=== PATIENT | male | born 1945 | race Two or more races ===

== ENCOUNTER 2024-11-02 09:47 | Outpatient (OUT) | payer MEDICARE, SELFPAY ==
--- NOTE | 2024-11-02 09:57 | ECG_ITS ---
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 Measurements Intervals [place] Rate: 82 P: 68 RI: 169 QRS: 37 QRSD: 109 T: 60 QT: 373 QTc: 438 Interpretive Statements SINUS RHYTHM Normal ECG No previous ECG available for comparison Electronically Signed On 11-03-2024 6:43:48 EDT by GEORGE ROSA M.D.
[2024-11-02 10:35] LABS: INR 1.12; Partial Thromboplastin Time 26.0 sec (22.3-36.2); Prothrombin Time 11.7 sec (9.0-11.6)
[2024-11-02 10:36] LABS: Hematocrit 41.0 % (42.0-54.0); Hemoglobin 13.8 g/dL (14.0-18.0); Immature Granulocytes Abs Auto 0.01 10^3/uL (0.00-0.03); Immature Granulocytes Pct Auto 0.1 % (0.0-0.5); Lymphocytes Absolute Auto 2.2 10^3/uL (1.2-3.8); Mean Corpuscular HGB Conc 33.7 g/dL (29.9-35.2); Mean Corpuscular Hemoglobin 30.5 pg (25.9-34.0); Mean Corpuscular Volume 90.7 fL (80.0-94.0); Platelet Count 213 10^3/uL (150-450); Red Blood Count 4.52 10^6/uL (4.70-6.10); White Blood Count 7.0 10^3/uL (4.0-11.0)
[2024-11-02 10:48] LABS: Anion Gap 11.3; Blood Urea Nitrogen 23.0 mg/dL (7.0-18.0); Calcium 9.1 mg/dL (8.5-10.1); Carbon Dioxide 28.1 mmol/L (21.0-32.0); Chloride 104 mmol/L (98-107); Estimated GFR (African America 57 (>=60 mL/min/1.73m^2); Estimated GFR (Non-African Ame 47 (>=60 mL/min/1.73m^2); Glucose 161 mg/dL (74-106); Potassium 4.4 mmol/L (3.5-5.1); Sodium 139 mmol/L (136-145)
--- NOTE | 2024-11-02 11:31 | PM.PRESUREVA ---
History of Present Illness History of Present Illness Chief complaint: Bladder Tumor Lesion Narrative: Patient presents for presurgical testing. The patient reports a year-long history of bladder cancer with multiple resections. He states he recently had a cystoscopy and is now scheduled for an additional TURBT. He denies any urological complaints today. Review of Systems ROS Narrative REVIEW OF SYSTEMS: Negative except as stated in HPI, ten or more systems reviewed. Constitutional: No fever, chills, weakness ENT: No sore throat or epistaxis Cardiovascular: Chronic lower extremity edema and dyspnea on exertion; No chest pain Respiratory: No cough or wheezing Musculoskeletal: No joint pain or swelling Gastrointestinal: No abdominal pain, constipation, diarrhea, or vomiting Genitourinary: No dysuria Neurological: No numbness, tingling, weakness, or headache Psychiatric: No mood changes PFSH PFS Medical History (Updated 11/02/24 @ 11:30 by Chayo Knight NP) Hematuria ?R31.9 - Hematuria, unspecified (ICD-10) Renal cyst ?N28.1 - Cyst of kidney, acquired (ICD-10) Bladder tumor ?D49.4 - Neoplasm of unspecified behavior of bladder (ICD-10) Back pain ?M54.9 - Dorsalgia, unspecified (ICD-10) Arthritis ?M19.90 - Unspecified osteoarthritis, unspecified site (ICD-10) MARIANNA on CPAP ?G47.33 - Obstructive sleep apnea (adult) (pediatric) (ICD-10) Sleep apnea ?G47.30 - Sleep apnea, unspecified (ICD-10) GERD (gastroesophageal reflux disease) ?K21.9 - Gastro-esophageal reflux disease without esophagitis (ICD-10) Extremity edema ?R60.0 - Localized edema (ICD-10) Dyspnea on exertion ?R06.09 - Other forms of dyspnea (ICD-10) Hypertension ?I10 - Essential (primary) hypertension (ICD-10) High cholesterol ?E78.00 - Pure hypercholesterolemia, unspecified (ICD-10) Prediabetes ?R73.03 - Prediabetes (ICD-10) Surgical History (Updated 11/02/24 @ 10:20 by Chayo Knight NP) History of arthroplasty of knee ?Z96.659 - Presence of unspecified artificial knee joint (ICD-10) History of tonsillectomy ?Z90.89 - Acquired absence of other organs (ICD-10) History of colonoscopy ?Z98.890 - Other specified postprocedural states (ICD-10) History of appendectomy ?Z90.49 - Acquired absence of other specified parts of digestive tract (ICD-10) S/P cystoscopy ?Z98.890 - Other specified postprocedural states (ICD-10) History of bladder surgery ?Z98.890 - Other specified postprocedural states (ICD-10) Family History (Updated 11/02/24 @ 10:19 by Chayo Knight NP) Other Family history of cancer Family history of diabetes mellitus Family history of myocardial infarction Social History (Updated 11/02/24 @ 10:17 by Chayo Knight NP) Within the past year, how often did you have a drink containing alcohol: monthly or less Smoking status: Former smoker Non-prescribed substance use: denies use Highest level of school completed/degree received: high school graduate Meds Home Medications and Allergies Home Medications ?Medication ?Instructions ?Recorded ?Confirmed ?Type atorvastatin 10 mg tablet 10 mg PO DAILY 11/02/24 11/02/24 History cholecalciferol (vitamin D3) 250 250 mcg PO DAILY 11/02/24 11/02/24 History mcg (10,000 unit) capsule diclofenac sodium 75 mg 75 mg PO Q12H 11/02/24 11/02/24 History tablet,delayed release fiber 1 cap PO DAILY 11/02/24 11/02/24 History fosinopril 20 mg tablet 20 mg PO DAILY 11/02/24 11/02/24 History mecobalamin (vitamin B12) 1,000 1,000 mcg PO DAILY 11/02/24 11/02/24 History mcg chewable tablet multivitamin (Daily Multi-Vitamin 1 tab PO DAILY 11/02/24 11/02/24 History tablet) omeprazole 20 mg capsule,delayed 20 mg PO DAILY 11/02/24 11/02/24 History release phentermine 37.5 mg capsule 37.5 mg PO DAILY 11/02/24 11/02/24 History tamsulosin 0.4 mg capsule (Flomax) 0.4 mg PO DAILY 11/02/24 11/02/24 History Allergies Allergy/AdvReac Type Severity Reaction Status Date / Time Penicillins Allergy Unknown Verified 11/02/24 10:15 Exam Narrative Exam Narrative: Constitutional: Awake, alert, comfortable, well-appearing, nontoxic, interactive, vital signs as charted Head: Normocephalic, atraumatic Neck: Supple, normal appearance, normal range of motion, no meningeal signs, no lymphadenopathy Respiratory: No respiratory distress, breath sounds clear Cardiovascular: Regular rate and rhythm, strong and regular heart tones Abdomen: Nontender, normal bowel sounds, soft, no CVA tenderness Musculoskeletal: Ambulates with a slow steady gait, 2+ pitting edema bilateral lower extremities Skin: No rashes or induration, no lesions, only visible skin inspected Neuro: No neurological deficits, normal sensation Psychiatric: Oriented ?3, normal affect Assessment and Plan Assessment and Plan (1) Bladder tumor: Plan Cystoscopy, TURBT scheduled with Dr. Ritchie November 09 2024.
== END 2024-11-02 09:48 | disposition home or self-care (01) ==
LOC: PST 09:52
PROVIDERS: Visit Provider Urology
DX: Z01.810 Encounter for preprocedural cardiovascular examination (principal); Z01.812 Encounter for preprocedural laboratory examination; Z01.818 Encounter for other preprocedural examination; D49.4 Neoplasm of unspecified behavior of bladder; N28.1 Cyst of kidney, acquired
CPT/HCPCS: 80048; 85025; 85610; 85730; 93005; G0463

== ENCOUNTER 2024-11-09 08:40 | Day surgery (SDC) | payer MEDICARE, SELFPAY ==
[2024-11-02 11:10] VITALS: BP 122/73; PULSE 78; TEMP 36.6; O2SAT 96; BMI 42.9
[2024-11-09] VITALS (14 sets, daily range): BP systolic 107–167; BP diastolic 53–90; PULSE 61–86; TEMP 36.2–37.1; O2SAT 93–97; BMI 42.2
--- OUTSIDE RECORDS SUMMARY | 2024-11-09 08:44 | XMS_ITS | Encounter Summary ---
Author Organization [facility] Address [address] [place] [address] Care Team Providers Care Shake Cutter Name Role Phone Yasmani Ritchie MD Unavailable [phone] Aubrey Coffman MD Unavailable Unavail able Colette Brody APRN.RISK AND COMPLIANCE ANALYTICS DIRECTOR Unavailable [phone] Leydi Delgado RN Unavailable [phone] Monty Ventura MD Primary Care Provider Source Comments In the event this information is protected by the Federal Confidentiality of Alcohol and Drug AbusePatient Records regulations: The Federal rules restrict any use of the information to criminally investigate or prosecute any alcohol or drug abuse patient.[facility] Encounter Details Date Type Department Care Team (Late st Contact Info) Description 08/19/2023 Abstract Hematology/Oncology [address] [place] [address] Alana Holguin MA Social History Tobacco Use Types Packs/Day Years Used Date Smoking Tobacco: Former Cigarettes 1 9 - 1986 Smokeless Tobacco: Never Tobacco Cessation:Counseling Given: Not Answered Sex and Gender Information Value Date Recorded Sex Assigned at Not on file Legal Sex Male 10:03 AM EDT Gender Identity Not on file Sexual Orientation Not on file documented as of this encounter Plan of Treatment Upcoming Encounters Date Type Department Care Team (Latest Contact Info) Description 12/07/2024 12:45 PM EDT Office Visit [facility] [address] [facility] [place] [address] lab follow up and BCG 12/07/2024 1:00 PM EDT Visit (SP) Office Hematology/Oncology [address] [place] [address] [place] [address] Abel Chen MD [address] [place] [address] lab follow up and BCG 12/07/2024 1:00 PM EDT Infusion Center Hematology/Oncology [address] [place] [address] [place] [address] May need to cancel Maintenance BCG/LSlab follow up and BCG 12/14/2024 1:00 PM EDT Infusion Center Hematology/Oncology [address] [place] [address] [place] [address] BCG 12/21/2024 1:00 PM EDT Infusion Center Hematology/Oncology [address] [place] [address] [place] [address] BCG documented as of this encounter Visit Diagnoses Not on filedocumented in this encounter Care Teams Shake Cutter Relationship Specialty Start Date End Date Monty Ventura MD [address] [place] [address] PCP - General Family Medicine 08/31/23 Yasmani Ritchie MD Urology 08/19/23 Aubrey Coffman MD Physician Hematology/Oncology 08/25/23 10/13/24 Colette Brody APRN.RISK AND COMPLIANCE ANALYTICS DIRECTOR [address] [place] [address] [place], [place] [id number] Nurse Practitioner Hematology/Oncology 08/25/23 Leydi Delgado, MATILDA [address] [place] [address] [place] [address] Specialty Quality Assurance Supervisor Trim Hematology/Oncology 08/25/23 documented as of this encounter
--- OUTSIDE RECORDS SUMMARY | 2024-11-09 08:44 | XMS_ITS ---
Author Organization [facility] Address [address] [place] [address] Care Team Providers Care Neon Technician Name Role Phone Yasmani Ritchie MD Unavailable [phone] Colette Brody APRN.ENGRAVER AUTOMATIC Unavailable [phone] Leydi Delgado RN Unavailable [phone] Monty Ventura MD Primary Care Provider Active Problems Problem Noted Date Diagnosed Date Bladder cancer 03/01/2024 Current Treatment and Therapy Plans No current plan information found. Past Treatment and Therapy Plans ADULT THERAPY PLAN 1 Plan Name Start Date Discontinue Date Treatment Medications Discontinue Reason Plan Provider BLADDER INSTILLATION 06/06/2024 10/09/2024 bcg vaccine for bladder irrigation Other Aubrey Coffman MD BLADDER INSTILLATION 03/07/2024 05/31/2024 bcg vaccine for bladder irrigation Other Aubrey Coffman MD
--- OUTSIDE RECORDS SUMMARY | 2024-11-09 08:44 | XMS_ITS | Clinical Summary ---
Author Organization [facility] Address [address] [place] [address] Care Team Providers Care Tie Cutter Name Role Phone Yasmani Ritchie MD Unavailable Colette Brody APRN.INSPECTOR FIREARMS Unavailable [phone] Leydi Delgado RN Unavailable [phone] Monty Ventura MD Primary Care Provider Allergies Active Allergy Reactions Criticality Noted Date Comments Penicillins Swelling 08/19/2023 Medications atorvastatin (LIPITOR) 10 mg tablet Take 10 mg by mouth daily at bedtime. 07/20/2023 Active diclofenac, EC, (VOLTAREN) 75 mg EC tablet Take 75 mg by mouth once daily. 04/22/2023 Active omeprazole (PRILOSEC) 20 mg capsule Take 20 mg by mouth once daily. 07/20/2023 Active Fosinopril Sodium (MONOPRIL) 20 mg tablet Take 20 mg by mouth once daily. 04/22/2023 Active MULTIVITAMIN ORAL Take 1 tablet by mouth once daily. 03/20/2016 Active psyllium seed, with sugar, (FIBER ORAL) Take 1 Dose by mouth once daily. Active Active Problems Problem Noted Date Diagnosed Date Bladder cancer 03/01/2024 Encounters Date Type Department Care Team Description 08/16/2024 2:20 PM EDT Visit (SP) Office Hematology/Oncology [address] [place] [address] [place] [address] Abel Chen MD Malignant neoplasm of overlapping sites of bladder (HCC) (Primary Dx) 08/16/2024 Travel from Last 3 Months Immunizations Immunization Administration Dates Next Due influenza (IIV3) vaccine, tr ivalent (AFLURIA, FLULAVAL, FLUVIRIN, FLUZONE) 03/24/2013 influenza (IIV3) vaccine, tr ivalent, PF (AFLURIA, FLUARIX, FLULAVAL, FLUVIRIN, FLUZONE) 01/24/2014 influenza (IIV4) vaccine, ag e 6 mo - 64 yr, quadrivalent, PF (AFLURIA, FLUARIX, FLULAVAL, FLUZONE) 01/31/2021,02/09/2020,01/06/2019,02/28,02/26/2015 influenza (aIIV3) vaccine, a ge 65+ yr, trivalent, PF (FLUAD) 02/10/2024 influenza (aIIV4) vaccine, a ge 65+ yr, quadrivalent, PF (FLUAD QUAD) 01/15/2023,02/17/2022 influenza vaccine, unspecifi ed formulation 02/22/2017,02/25/2016,02/26/2015,01/24,03/24/2013 novel influenza (P3S9-49) vaccine, PF 03/26/2009 pneumococcal conjugate (PCV1 3) vaccine, 13 valent (PREVNAR 13) 03/08/2017 pneumococcal polysaccharide (PPV23) vaccine, 23 valent (PNEUMOVAX 23) 03/24/2013,03/24/2013 tetanus diphtheria pertussis (Tdap) vaccine, age 7+ yr (ADACEL, BOOSTRIX) 12/29/2011 zoster (RZV) vaccine, recomb inant (SHINGRIX) 09/06/2018 Family History Medical History Relation Comments Coronary Artery Disease Father Heart disease Mother Melanoma Mother Relation Status Comments Father Mother Social History Tobacco Use Types Packs/Day Years Used Date Smoking Tobacco: Former Cigarettes 1 1986 Smokeless Tobacco: Never Tobacco Cessation:Counseling Given: Not Answered PHQ-2 Answer Date Recorded PHQ-2 score 0 05/24/2024 Area Deprivation Index Answer Date Giuseppe rded National Score (1-100), lower number is lower ri sk 68 02/22/2024 State Score (1-10), lower number is lower risk 5 02/22/2024 Data from: https://www.neighborhoodatlas.medicine.[facility].edu/. Last address used for calculation [address] 02/22/2024 Sex and Gender Information Value Date Recorded Sex Assigned at Not on file Legal Sex Male 10:03 AM EDT Gender Identity Not on file Sexual Orientation Not on file Last Filed Vital Signs Vital Sign [place] Time Taken Comments Blood Pressure 158/80 08/16/2024 2:00 PM EDT recheck BP Pulse 61 08/16/2024 1:53 PM EDT Temperature 36.3 C (97.3 F) 08/16/2024 1:53 PM EDT Respiratory Rate 18 08/16/2024 1:53 PM EDT Oxygen Saturation 98% 08/16/2024 1:5 3 PM EDT Inhaled Oxygen Concentration - - Weight 152.3 kg (335 lb 12. 2 oz) 08/16/2024 1:53 PM EDT Height 178.1 cm (5' 10.12 ) 08/16/2024 1:53 PM EDT Body Mass Index 48.01 08/16/2024 1:53 PM EDT Plan of Treatment Upcoming Encounters Date Type Department Care Team (Latest Contact Info) Description 12/07/2024 12:45 PM EDT Office Visit [facility] [address] [place] [address] [place] [address] lab follow up and BCG 12/07/2024 1:00 PM EDT Visit (SP) Office Hematology/Oncology [address] [place] [place] [address] Abel Chen MD [address] [place] [address] [place] [address] lab follow up and BCG 12/07/2024 1:00 PM EDT Infusion Center Hematology/Oncology [address] [place] [address] [place] [address] May need to cancel Maintenance BCG/LSlab follow up and BCG 12/14/2024 1:00 PM EDT Infusion Center Hematology/Oncology [address] [place] [address] [place] [address] BCG 12/21/2024 1:00 PM EDT Infusion Center Hematology/Oncology [address] [place] [address] [place] [address] BCG Health Maintenance Due Date Last Done Comments Anxiety Screening 1965 Depression Screening 1965 Hepatitis C Screening 1965 Diabetes Screening 1992 Medicare Annual Wellness Visit 03/12/2012 Shingrix Vaccine (2 of 2) 11/01/2018 09/06/2018 DTaP,Tdap,Td Vaccine (2 - Td or Tdap) 12/28/2021 12/29/2011 RSV Vaccine (1 - 1-dose 75+ series) 2022 Advance Directive Discussion 04/12/2024 Influenza Vaccine (#1) 2024 , 01/15/2023, 02/17/2022, Additional history exists Pneumococcal Vaccine: 50+ Completed 2016, 03/24/2013, 03/24/2013 [place] [id number] Care Teams Tie Cutter Relationship Specialty Start Date End Date Monty Ventura MD [address] [place], [place] [id number] PCP - General Family Medicine 08/31/23 Yasmani Ritchie MD Urology 08/19/23 Colette Brody APRN.[facility] [address] [place] [address] [place] [address] Nurse Practitioner Hematology/Oncology 08/25/23 Leydi Delgado, MATILDA [address] [place] [address] [place] [address] Specialty Manager Wind Hematology/Oncology 08/25/23
--- OUTSIDE RECORDS SUMMARY | 2024-11-09 08:44 | XMS_ITS ---
Author Organization [facility] Care Team Providers Care Grooving Machine Operator Name Role Phone Monty Ventura Unavailable Unavailable Allergies and adverse reactions Code CodeSystem Substance Reaction Severity StartDate Concern Status 241560057 SNOMED CT Penicillins Unknown 03/01/2014 activ e Care Team Name Role Address Phone Organization Dates Monty Ventura PCP [address], [place], [address], [place] (Office): : [facility] 03/12/2014 - 04/14/2014 Goals Section Goals Description Status Target Date will maintain acceptab le level of comfort (as expressed by resident) through review date. Active 06/03/2014 will remain free from discomfort, complications or s/sx related to dx of GERD through review date. Active 06/03/2014 KARDEX INFO ONLY Active 06/03/2014 Prevent falls x's 90 days. Active 06/03 Prevent skin breakdown r/t pressure x's 90 days. Active 06/03/2014 Resident will not develop DVT/PE while on antico agulant. Active 06/03/2014 Staff will monitor for s/s o f pain and administer analgesic and provide comfort measures prn Active 06/03/2014 The resident will remain free from complications of hypertension. Active 06/03/2014 Will improve current level o f function in order to return home when rehab complete. Active 06/03/2014 Will voice a level of comfor t of <5 out of 10 through the review date. Active 06/03/2014 Immunizations Immunization Status Vaccine Details Vaccine Code CodeSystem Date Notes Influenza completed Influenza, high-dose, split virus, quadrivalent, injectable, preservative free 197 CVX created date: 03/12/2014 administer ed date: 12/20/[address] Alvares office Pneumovax Dose 1 completed cre ated date: 03/12/2014 administer ed date: 02/21/[address] Alvares office in february of 2013. TB 2 Step Mantoux Skin Test completed tuberculin skin test; unspecified formulation lotNumber: [id number] expiry: 07/12/2015 Mfg: Aplisol Given 0.1 ml Left Forearm intradermally Step 1 of Multi-step with next step required 98 CVX created date: 03/04/2014 consent date: 03/03/2014 administer ed date: 03/04/2014 Mental Status Section Date Assessment Total Score Description 03/10/2014 BIMS 15 cognitively int act PHQ-9 01 minimal depress ion 03/09/2014 BIMS 15 cognitively int act PHQ-9 01 minimal depress ion Reason for Referral No Reasons for Referral Entered Social History Social History Observation Description Start Date End Date Code Code System Current Smoking Status Tobacco smoking consumption unknown 791618640 SNOMED CT Sex Assigned At Male 1945 24598-5 [facility] Gender Identity Vital Signs Code Code System Vitals Name Values and Units Timing Information 9279-1 [facility] Respiratory Rate Value=18.0 Units=/m in 03/10/2014 89288-4 [facility] O2 % BldC Oximetry Value=94.0 Units= % 03/10/2014 8867-4 [facility] Heart rate Value=60.0 Units=/min 8310-5 [facility] Body Temperature Value=99.1 Units= F 03/10/2014 8462-4 [facility] Blood Pressure-Diastolic Value=68 Un its=mmHg 03/10/2014 8480-6 [facility] Blood Pressure-Systolic Vysaw=337 Un its=mmHg 03/10/2014 48240-9 [facility] Pain Level Value=0.0 03/09/2014 66164-5 [facility] Weight Dkoxk=036.5 Units=Lbs
[2024-11-09] MEDS: CIPROFLOXACIN 400 MG/200 ML D5W PREMIX 200 MG IV (10:28)
--- NOTE | 2024-11-09 11:22 | PM.URSON ---
Urology Surgery Operative Note Operative Note Procedure Date: 11/09/24 Time Out Performed: yes Pre-op Diagnosis: Recurrent bladder tumors Post-op Diagnosis: same as pre-op Procedures performed: 1. Cystoscopy. 2. 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 His reresection was negative. He has had intravesical BCG therapies. On surveillance cystoscopy he was found to have some recurrence. He now presents for TURBT. He has signed an informed consent after risks were explained. Detailed description of Procedure: The patient was brought to the operating room and placed on the operating room table in the supine position. SCDs were placed on the lower extremities and turned on and functioning during the entire case. Timeout was done by all parties in the room. We all agreed upon the patient's identification and the planned procedures for this patient. Genn. anesthesia was then administered. The patient was then repositioned into the modified dorsal lithotomy position. All pressure points were satisfactorily padded. Genitalia were sterilely prepped and draped in usual fashion. I started by passing a 26 [place] Olympus resectoscope with a standard bipolar loop electrode per urethra and into the bladder. The anterior urethra had a couple mild strictures within it. The scope was able to progress through them. Prostate was with by lobar hypertrophy. Panendoscopy in the bladder revealed the previously noted tumor patch on the left wall towards the back near the floor. On closer inspection I was able to find 2 other patches of small papillary tumors just adjacent to this 1. I then uniformly and deeply resected each of these 3 areas. The tumor pieces were removed and sent for pathology. The resection beds were coagulated thoroughly. There were a couple other hypervascular areas without any visible tumors adjacent to these resected sites which I did fully coagulate. Upon completion, there was no evidence of any tumors. There was no bleeding. Everything looked excellent. The bladder was drained of its contents. The scope was then removed. I did not place a catheter. The anesthetic was then reversed. The patient was then transferred to a gurney bed and wheeled to PACU in stable condition.
--- NOTE | 2024-11-09 14:01 | PC.NURSE ---
Patient has been in phase 2 for 2 hours and is trying to urinate without success. Patient has drank water and had fluids iv. bladder scanner is reading 212 ml at this time. Updating Dr Torres's for the next step.
[2024-11-09] MEDS: PHENAZOPYRIDINE 100 MG TABLET 200 MG PO (14:30)
--- NOTE | 2024-11-09 14:49 | PC.NURSE ---
Updated Dr. Torres post straight cath. Patient was given Pyridium per Dr. Torres's verbal order and another bag of LR. Dr. Torres wants patient to urinate o his own prior to discharge.
[2024-11-09] MEDS: SOLIFENACIN SUCCINATE 10 MG TABLET PO (15:21)
--- NOTE | 2024-11-09 15:45 | PC.NURSE ---
18 fr coude catheter inserted with large drain bag attached. Inserted smoothly draining clear yellow urine. Patient tolerated well. Attached cath secure.
--- NOTE | 2024-11-09 15:56 | PC.NURSE ---
Patient was offered leg bag for urine drainage but he refused stating he does not like the small capacity and it is much easier with large bag for him.
== END 2024-11-09 15:55 | disposition home or self-care (01) ==
LOC: SURGOUT 08:41
PROVIDERS: Visit Provider Urology
PROC: (CPT 52235; principal; 2024-11-09 10:05)
DX: D09.0 Carcinoma in situ of bladder (principal); G47.30 Sleep apnea, unspecified; E78.5 Hyperlipidemia, unspecified; E11.9 Type 2 diabetes mellitus without complications; N30.21 Other chronic cystitis with hematuria; N52.9 Male erectile dysfunction, unspecified; Z96.649 Presence of unspecified artificial hip joint; Z96.659 Presence of unspecified artificial knee joint; Z87.891 Personal history of nicotine dependence; E66.01 Morbid (severe) obesity due to excess calories; Z68.41 Body mass index [BMI] 40.0-44.9, adult; I10 Essential (primary) hypertension; K21.9 Gastro-esophageal reflux disease without esophagitis
CPT/HCPCS: 52235; 36415; 51701; 51702; 51798; 88305; 88341; 88342; 88360; J0744; J1100; J2250; J2405; J2704; J3010